=== PATIENT | male | born 1960 | race Caucasian/White ===

== ENCOUNTER → 2023-08-15 11:11 | Outpatient (REF) | payer BC, SELFPAY | LOC: DHCBS MAIN 11:11 | PROVIDERS: ATTENDING PHYSICIAN Internal Medicine Interventional Cardiology; FAMILY PHYSICIAN Family Medicine | DX: R06.02 Shortness of breath (principal); I10 Essential (primary) hypertension; S37.009A Unspecified injury of unspecified kidney, initial encounter | CPT/HCPCS: 93306 ==